=== PATIENT | male | born 1985 | race Caucasian/White ===

== ENCOUNTER → 2018-06-11 | Outpatient (CLI) | payer BC | LOC: M WUC 14:00 | DX: S52.101A Unspecified fracture of upper end of right radius, initial encounter for closed fracture (principal); S40.011A Contusion of right shoulder, initial encounter; X58.XXXA Exposure to other specified factors, initial encounter; Y92.9 Unspecified place or not applicable; M25.421 Effusion, right elbow | CPT/HCPCS: 73000 ==